=== PATIENT | female | born 1945 | race Two or more races ===

== ENCOUNTER 2021-09-14 09:24 | Outpatient (REF) | payer OTHER, SELFPAY ==
[2021-09-14 10:25] LABS: COVID-19 Test Positive (Negative)
== END 2021-09-14 09:25 | disposition home or self-care (01) ==
LOC: HO.LAB 09:24
PROVIDERS: Visit Provider Internal Medicine
DX: Z20.822 Contact with and (suspected) exposure to COVID-19 (principal)
CPT/HCPCS: 87635; C9803